=== PATIENT | male | born 1950 | race Caucasian/White ===

== ENCOUNTER 2018-08-26 11:29 | Emergency (ER) | payer OTHER ==
[~2018-08-26] VITALS: Ht 180.3 cm; Wt 79.4 kg
[~2018-08-26 11:29] MED LIST: ALBU90OI INH; COUMADIN PO; Clonazepam0.5 MG PO; DOCU100 PO; DULO60; DULOXETINE HCL30 MG PO; HYDACE5325 PO; LISI20 PO; LISI5 PO; LORA2 PO; Lexapro PO; Metoprolol Tar100 MG PO; Monodox100 MG PO; OMEPRAZOLE PO; RXLORA1 PO; SPACE CHAMBER1 EACH MC; ZESTORETIC 20-121 EA PO; Zofran Odt8 MG SL
[2018-08-26 12:50] LABS: BASOPHILS ABSOLUTE AUTO 0.09 K/mm3 (0.00-0.23); BASOPHILS PERCENT AUTO 1 % (0-2); EOSINOPHILS ABSOLUTE AUTO 0.08 K/mm3 (0.00-0.68); EOSINOPHILS PERCENT AUTO 1 % (0-6); Hematocrit 39.3 % (37.0-53.0); Hemoglobin 13.1 g/dL (13.5-17.5); IMMATURE GRAN ABSOLUTE AUTO 0.02 K/mm3 (0.00-0.10); IMMATURE GRAN PERCENT AUTO 0 % (0-1); LYMPHOCYTES ABSOLUTE AUTO 0.68 K/mm3 (0.84-5.20); LYMPHOCYTES PERCENT AUTO 7 % (21-46); MONOCYTES ABSOLUTE AUTO 1.35 K/mm3 (0.16-1.47); MONOCYTES PERCENT AUTO 14 % (4-13); Mean Corpuscular HGB 32.3 pg (26.0-34.0); Mean Corpuscular HGB Conc 33.3 g/dL (31.5-36.5); Mean Corpuscular Volume 97 fL (80-100); Mean Platelet Volume 9.4 fL (9.1-12.4); NEUTROPHILS ABSOLUTE AUTO 7.44 K/mm3 (1.96-9.15); NEUTROPHILS PERCENT AUTO 77 % (41-73); Platelet Count 264 K/mm3 (150-400); RDW Coefficient Variation 12.2 % (11.7-14.2); RDW Standard Deviation 43.8 fL (35.1-46.3); Red Blood Cell Count 4.06 M/mm3 (4.30-5.90); White Blood Cell Count 9.66 K/mm3 (4.00-11.30)
[2018-08-26 13:13] LABS: Bilirubin, Total 0.5 mg/dL (0.1-1.0); Bun/Creatinine Ratio 14.7 (12.0-20.0); Calcium, Blood 10.6 mg/dL (8.5-10.1); Creatinine, Blood 1.29 mg/dL (0.60-1.20); Globulin, Blood 3.9 g/dL (2.2-4.0); Total Protein, Blood 7.9 g/dL (6.4-8.2)
== END 2018-08-26 15:55 | disposition left against medical advice (07) ==
LOC: ER 11:29
PROVIDERS: Emergency Medicine
DX: Z53.21 Procedure and treatment not carried out due to patient leaving prior to being seen by health care provider (principal)
CPT/HCPCS: 36415; 80053; 85025; 93005; 93010

== ENCOUNTER → 2022-08-03 | Outpatient (CLI) | payer OTHER ==
[2022-08-09 17:11] LABS: FREE TESTOSTERONE(DIRECT) 15.5 pg/mL (6.6-18.1); TESTOSTERONE, SERUM 899 ng/dL (264-916)
== END ==
LOC: LAB 08:50 → LAB SHORT 08:50
PROVIDERS: Nurse Practitioner Family
DX: E29.1 Testicular hypofunction (principal)
CPT/HCPCS: 84402; 84403

== ENCOUNTER → 2024-01-30 | Outpatient (CLI) | payer OTHER ==
[2024-01-30 08:59] LABS: BASOPHILS ABSOLUTE AUTO 0.09 K/mm3 (0.00-0.23); BASOPHILS PERCENT AUTO 1 % (0-2); EOSINOPHILS ABSOLUTE AUTO 0.03 K/mm3 (0.00-0.68); EOSINOPHILS PERCENT AUTO 0 % (0-6); Hematocrit 48.4 % (37.0-53.0); Hemoglobin 16.3 g/dL (13.5-17.5); IMMATURE GRAN ABSOLUTE AUTO 0.03 K/mm3 (0.00-0.10); IMMATURE GRAN PERCENT AUTO 0 % (0-1); LYMPHOCYTES ABSOLUTE AUTO 1.08 K/mm3 (0.84-5.20); LYMPHOCYTES PERCENT AUTO 10 % (21-46); MONOCYTES ABSOLUTE AUTO 1.26 K/mm3 (0.16-1.47); MONOCYTES PERCENT AUTO 11 % (4-13); Mean Corpuscular HGB 31.7 pg (26.0-34.0); Mean Corpuscular HGB Conc 33.7 g/dL (31.5-36.5); Mean Corpuscular Volume 94 fL (80-100); Mean Platelet Volume 9.5 fL (9.1-12.4); NEUTROPHILS ABSOLUTE AUTO 8.84 K/mm3 (1.96-9.15); NEUTROPHILS PERCENT AUTO 78 % (41-73); Platelet Count 300 K/mm3 (150-400); RDW Coefficient Variation 12.9 % (11.7-14.2); RDW Standard Deviation 44.2 fL (35.1-46.3); Red Blood Cell Count 5.14 M/mm3 (4.30-5.90); White Blood Cell Count 11.33 K/mm3 (4.00-11.30)
[2024-01-30 09:11] LABS: Albumin/Globulin Ratio 1.1 (0.8-1.8); Bilirubin, Total 0.9 mg/dL (0.1-1.0); Bun/Creatinine Ratio 10.8 (12.0-20.0); Calcium, Blood 12.5 mg/dL (8.5-10.1); Creatinine, Blood 4.61 mg/dL (0.60-1.20); Globulin, Blood 4.5 g/dL (2.2-4.0); Potassium, Blood 3.5 mmol/L (3.5-5.5); Total Protein, Blood 9.5 g/dL (6.4-8.2)
== END ==
LOC: LAB 08:55 → LAB SHORT 08:55
PROVIDERS: Physician Assistant
DX: R11.2 Nausea with vomiting, unspecified (principal)
CPT/HCPCS: 80053; 83690; 85025

== ENCOUNTER 2024-06-30 07:40 | Observation (INO) | payer OTHER ==
[2024-06-30] VITALS (14 sets, daily range): BP systolic 91–138; BP diastolic 57–92
[~2024-06-30] VITALS: Ht 177.8 cm; Wt 70.9 kg
[~2024-06-30 07:40] MED LIST changes: +AMLO5 PO; +ASPIR 8181 M1 PO; +FERSU300 PO; +GABA300 PO; +Hytrin2 MG PO; +Percocet 5-3251 EACH PO; +SILD50TA PO
[2024-06-30] MEDS ORDERED: Lactated Ringer's 1,000 ML IV SCH ×2 (07:55→12:35)
[2024-06-30] MEDS ORDERED: CeFAZolin Sodium 2,000 MG in NS 100 ML IV SCH (07:55)
--- NOTE | 2024-06-30 08:59 | NUR ---
Ambulatory in Day Surgery WITH S/O RECENTLY. History, Chart, Medications and Allergies reviewed before start of procedure.Lungs clear T/O to Auscultation. Patient confirms NPO status and agrees with scheduled surgery. Pre-Op teaching done. Pt verbalizes understanding.
[2024-06-30] MEDS ORDERED: Bupivacaine 0.5% HCl 5 MG/ML 30MLVIAL ONE (09:11)
[2024-06-30] MEDS ORDERED: propofoL 20 ML IV ONE (09:30)
[2024-06-30] MEDS ORDERED: FentaNYL Citrate 50 MCG/ML 2 ML Injection ONE (09:31)
[2024-06-30] MEDS ORDERED: Phenylephrine HCl 100 MCG/ML-NS 10MLSYR (1MG/10ML) ONE (09:36)
[2024-06-30] MEDS ORDERED: Phenylephrine HCl 10mg/ml 1 ml Vial ONE (10:21)
[2024-06-30] MEDS ORDERED: Ketorolac Tromethamine 30mg Vial ONE (10:22)
[2024-06-30] MEDS ORDERED: Glycopyrrolate 0.2 MG/ML 5ML VIAL ONE (10:23)
[2024-06-30] MEDS ORDERED: Rocuronium Bromide 10 MG/ML 5ML Injection IV ONE (10:23)
[2024-06-30] MEDS ORDERED: SuccINYLCHOLINE Chloride 100 MG/5 ML 5MLSYR ONE (10:23)
[2024-06-30] MEDS ORDERED: Ondansetron HCl 2 MG / ML 2ML Vial ONE (10:23)
[2024-06-30] MEDS ORDERED: Dexamethasone Sod Phos 10 MG/ML 1ML VIAL ONE (10:23)
[2024-06-30] MEDS ORDERED: Sugammadex Sodium 200 MG/2ML SDV (100 MG/ML) ONE (11:31)
[2024-06-30] MEDS ORDERED: HYDROmorphone HCl/Pf 1MG SYR IV PRN (12:25)
[2024-06-30] MEDS ORDERED: Ondansetron HCl 2 MG / ML 2ML Vial IV PRN ×2 (12:25→12:35)
[2024-06-30] MEDS ORDERED: FentaNYL Citrate 50 MCG/ML 2 ML Injection IV PRN ×3 (12:25→12:35)
[2024-06-30] MEDS ORDERED: OxyCODONE 5 mg/Acetamin 325 mg TABLET PO PRN (12:30)
[2024-06-30] MEDS ORDERED: Morphine Sulfate 4 MG/1 ML Injection IV PRN (12:30)
[2024-06-30] MEDS ORDERED: Metoclopramide HCl 5MG / ML 2ML Vial IV PRN (12:30)
[2024-06-30] MEDS ORDERED: Ondansetron 4 MG TAB PO PRN (12:35)
[2024-06-30] MEDS ORDERED: Magnesium Hydroxide Conc 10 ML UDC PO PRN (12:35)
--- NOTE | 2024-06-30 12:45 | NUR ---
ARRIVAL/POST OP NOTE PT ARRIVED TO ROOM 208 FROM PACU. PT IS ALERT, RESPONSIVE, FOLLOWING COMMANDS. SPOUSE AT BEDSIDE. VSS. CONTRERAS MIDLINE DRESSING C/D/I. PAS ON. PT DENIES PAIN/NAUSEA. TOLERATING ICE WATER AND CRACKERS. CALL LIGHT IN REACH.
--- NOTE | 2024-06-30 17:48 | NUR ---
SHIFT SUMMARY PT IS A SBA TO AMBULATE. VOIDED, TOLERATING SNACKS AND FLUIDS. PAIN TOLERABLE. DRESSINGS C/D/I, CONTRERAS HOLDING SUCTION. VSS. PT IS ON ROOM AIR W/ O2 SATS >92%. PAS ON. CALL LIGHT IN REACH.
[2024-06-30] MEDS ORDERED: Docusate Sodium 100 MG Cap PO SCH (21:00)
[2024-06-30] MEDS ORDERED: Gabapentin 300 MG Cap PO SCH (21:00)
[2024-06-30] MEDS ORDERED: Doxazosin Mesylate 2 MG Tab PO SCH (21:00)
[2024-07-01 04:13] VITALS: BP 114/82
[2024-07-01 04:30] LABS: BASOPHILS ABSOLUTE AUTO 0.04 K/mm3 (0.00-0.23); BASOPHILS PERCENT AUTO 0 % (0-2); EOSINOPHILS ABSOLUTE AUTO 0.01 K/mm3 (0.00-0.68); EOSINOPHILS PERCENT AUTO 0 % (0-6); Hematocrit 32.1 % (37.0-53.0); Hemoglobin 10.5 g/dL (13.5-17.5); IMMATURE GRAN ABSOLUTE AUTO 0.04 K/mm3 (0.00-0.10); IMMATURE GRAN PERCENT AUTO 0 % (0-1); LYMPHOCYTES ABSOLUTE AUTO 0.73 K/mm3 (0.84-5.20); LYMPHOCYTES PERCENT AUTO 6 % (21-46); MONOCYTES ABSOLUTE AUTO 1.54 K/mm3 (0.16-1.47); MONOCYTES PERCENT AUTO 14 % (4-13); Mean Corpuscular HGB 31.8 pg (26.0-34.0); Mean Corpuscular HGB Conc 32.7 g/dL (31.5-36.5); Mean Corpuscular Volume 97 fL (80-100); Mean Platelet Volume 9.5 fL (9.1-12.4); NEUTROPHILS ABSOLUTE AUTO 8.99 K/mm3 (1.96-9.15); NEUTROPHILS PERCENT AUTO 79 % (41-73); Platelet Count 228 K/mm3 (150-400); RDW Coefficient Variation 13.1 % (11.7-14.2); RDW Standard Deviation 46.9 fL (35.1-46.3); White Blood Cell Count 11.35 K/mm3 (4.00-11.30)
[2024-07-01 05:07] LABS: Calcium, Blood 8.7 mg/dL (8.5-10.1); Creatinine, Blood 1.23 mg/dL (0.60-1.20); Potassium, Blood 4.7 mmol/L (3.5-5.5)
--- NOTE | 2024-07-01 05:26 | NUR ---
SHIFT SUMMARY NOC PT A/O X 4. PLEASANT AND COOPERATIVE WITH CARE. POST OP VSS. PT POST OP DAY 1 TODAY AFTER HERNIA REPAIR WITH MESH WITH CONTRERAS DRESSING C/D/I AND ABD BINDER IN PLACE. PAIN BEING MANAGED PER EMAR. PT PASSING GAS, BUT NO BM YET. PT URINATING W/O ISSUE. PT EXPECTED TO DISCHARGE TODAY. PT CURRENTLY RESTING WITH BED IN LOWEST POSITION, AND CALL LIGHT WITHIN REACH.
[2024-07-01 07:09] VITALS: BP 102/55
[2024-07-01] MEDS ORDERED: AmLODIPine Besylate 5 MG Tab PO SCH (09:00)
[2024-07-01] MEDS ORDERED: DULoxetine HCL 30 MG Cap DR PO SCH (09:00)
[2024-07-01] MEDS ORDERED: Lisinopril 20 MG Tab PO SCH (09:00)
[2024-07-01] MEDS ORDERED: METO100 PO (10:43)
[2024-07-01] MEDS ORDERED: ADALAT CC30 M1 PO (10:43)
[2024-07-01] MEDS ORDERED: NEURONTIN300 MG PO (10:44)
--- NOTE | 2024-07-01 11:39 | NUR ---
Pt. is awake and sitting up dressed awaiting discharge orders when he welcomed my visit. Spouse is present. 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 Facilitated an update and listen with empathy and a calming presence. Pt. displayed evidence of being fully engaged and aware of his conditional and displays evidence of being motivated to put his procedures behind him.
[2024-07-01] MEDS ORDERED: Percocet 5-3251 EACH PO (11:44)
--- NOTE | 2024-07-01 12:04 | NUR ---
DISCHARGE NOTE PT IS A/OX4, IND IN ROOM. TOLERATING REG DIET, FLUIDS, VOIDING. DENIES N/V. PAIN TOLERABLE W/ PAIN MEDS PER EMAR. WRITTEN PRESCIPTION FOR PAIN MEDS GIVEN TO PT BY TRISTIN RIVAS, COPY IN CHART. VSS. CONTRERAS DRESSING IN PLACE C/D/I. CHARGE NURSE TRISTIN REVIEWED DISCHARGE W/ PT, COPY GIVEN. PT DC'D IN STABLE CONDITION W/ BELONGINGS TO PRIVATE R[facility] HOME.
== END 2024-07-01 12:05 | disposition home or self-care (01) ==
LOC: MEDS 07:40 → PRE IP 07:40 → MEDS 07:40 → PRE IP 09:00 → SURS 12:44 → MEDS 12:44 → SURS 12:44 → MEDS 07-01 12:05
PROVIDERS: ADMIT Surgery
PROC: 0WUF0JZ Supplement Abdominal Wall with Synthetic Substitute, Open Approach (ICD-10-PCS; principal; 2024-06-30 09:00)
DX: K43.2 Incisional hernia without obstruction or gangrene (principal); J44.9 Chronic obstructive pulmonary disease, unspecified; F32.A Depression, unspecified; E78.00 Pure hypercholesterolemia, unspecified; I10 Essential (primary) hypertension; F12.90 Cannabis use, unspecified, uncomplicated; Z87.19 Personal history of other diseases of the digestive system; Z85.89 Personal history of malignant neoplasm of other organs and systems; Z98.890 Other specified postprocedural states; Z90.89 Acquired absence of other organs; Z79.899 Other long term (current) drug therapy; Z79.811 Long term (current) use of aromatase inhibitors; Z88.5 Allergy status to narcotic agent
CPT/HCPCS: 36415; 80048; 85025; A9270; C1781; J0330; J0690; J1100; J1885; J2371; J2405; J2704; J3010; J7120

== ENCOUNTER 2024-07-14 07:23 | Emergency (ER) | payer OTHER ==
[~2024-07-14] VITALS: Ht 180.3 cm; Wt 71.7 kg
[~2024-07-14 07:23] MED LIST changes: +ADALAT CC30 M1 PO; +METO100 PO; +NEURONTIN300 MG PO
[2024-07-14 09:09] LABS: BASOPHILS ABSOLUTE AUTO 0.06 K/mm3 (0.00-0.23); BASOPHILS PERCENT AUTO 1 % (0-2); EOSINOPHILS ABSOLUTE AUTO 0.06 K/mm3 (0.00-0.68); EOSINOPHILS PERCENT AUTO 1 % (0-6); Hematocrit 27.3 % (37.0-53.0); Hemoglobin 8.8 g/dL (13.5-17.5); IMMATURE GRAN ABSOLUTE AUTO 0.03 K/mm3 (0.00-0.10); IMMATURE GRAN PERCENT AUTO 0 % (0-1); LYMPHOCYTES ABSOLUTE AUTO 0.54 K/mm3 (0.84-5.20); LYMPHOCYTES PERCENT AUTO 5 % (21-46); MONOCYTES ABSOLUTE AUTO 1.68 K/mm3 (0.16-1.47); MONOCYTES PERCENT AUTO 16 % (4-13); Mean Corpuscular HGB 31.9 pg (26.0-34.0); Mean Corpuscular HGB Conc 32.2 g/dL (31.5-36.5); Mean Corpuscular Volume 99 fL (80-100); Mean Platelet Volume 9.1 fL (9.1-12.4); NEUTROPHILS ABSOLUTE AUTO 8.07 K/mm3 (1.96-9.15); NEUTROPHILS PERCENT AUTO 77 % (41-73); Platelet Count 457 K/mm3 (150-400); RDW Coefficient Variation 13.2 % (11.7-14.2); Red Blood Cell Count 2.76 M/mm3 (4.30-5.90); White Blood Cell Count 10.44 K/mm3 (4.00-11.30)
[2024-07-14 09:24] LABS: Albumin, Blood 3.2 g/dL (3.4-5.0); Albumin/Globulin Ratio 0.9 (0.8-1.8); Bilirubin, Total 0.6 mg/dL (0.1-1.0); Bun/Creatinine Ratio 29.4 (12.0-20.0); Creatinine, Blood 1.36 mg/dL (0.60-1.20); Globulin, Blood 3.6 g/dL (2.2-4.0); Potassium, Blood 3.6 mmol/L (3.5-5.5); Total Protein, Blood 6.8 g/dL (6.4-8.2)
[2024-07-14 10:00] VITALS: BP 118/70
== END 2024-07-14 10:41 | disposition home or self-care (01) ==
LOC: ER 07:23
PROVIDERS: Emergency Medicine
DX: L76.32 Postprocedural hematoma of skin and subcutaneous tissue following other procedure (principal); D64.9 Anemia, unspecified; I10 Essential (primary) hypertension; Z88.5 Allergy status to narcotic agent; Z79.899 Other long term (current) drug therapy; Z79.82 Long term (current) use of aspirin; Z87.891 Personal history of nicotine dependence
CPT/HCPCS: 74177; 80053; 85025; 99284-25; Q9967

== ENCOUNTER 2024-07-25 09:00 | Day surgery (SDC) | payer OTHER ==
[~2024-07-25] VITALS: Ht 180.3 cm; Wt 69.0 kg
[~2024-07-25 09:00] MED LIST changes: +Lactated Ringer's 1,000 ML IV ONE; +Lidocaine HCl/Pf 1% 5 ML VIAL ONE
[2024-07-25] MEDS ORDERED: CeFAZolin Sodium 2,000 MG VIAL ONE (09:34)
--- NOTE | 2024-07-25 09:52 | NUR ---
07/25/24 0952 Suze Springer PATIENT HAS RASH ALL OVER HIS BACK, SOME ON HIS LEGS AND ARMS. HE STATES HE STARTED HAVING AN ITCHY BACK THE NIGHT BEFORE LAST AND IT ITCHED LAST NIGHT TOO, BUT THAT HE DID NOT NOTICE THE SPOTS ON HIS ARMS AND LEGS UNTIL THIS MORNING. THE RASH IS RED SPOTS THAT ARE NOT RAISED. NO RECENT FEVER. AT 0950 DR CHU WAS MADE AWARE OF THIS RASH, PER DR CHU HE HAD A RASH WHEN HE CAME INTO THE OFFICE THE OTHER DAY AND PROCEED WITH SURGERY SCHEDULED TODAY.
[2024-07-25] MEDS ORDERED: Amoxicillin500 MG PO (09:59)
[2024-07-25] MEDS ORDERED: Lactated Ringer's 1,000 ML IV ONE ×2 (10:05→11:46)
[2024-07-25] MEDS ORDERED: FentaNYL Citrate 50 MCG/ML 2 ML Injection ONE ×2 (10:17→11:25)
[2024-07-25] MEDS ORDERED: Midazolam HCl 1MG / ML 2ML Vial ONE (10:17)
[2024-07-25] MEDS ORDERED: propofoL 20 ML IV ONE (10:17)
[2024-07-25] MEDS ORDERED: Dexamethasone Sod Phos 10 MG/ML 1ML VIAL ONE ×2 (10:37→14:12)
[2024-07-25] MEDS ORDERED: Ondansetron HCl 2 MG / ML 2ML Vial ONE ×2 (10:37→14:12)
[2024-07-25] MEDS ORDERED: Phenylephrine HCl 100 MCG/ML-NS 10MLSYR (1MG/10ML) ONE (10:56)
[2024-07-25] MEDS ORDERED: ePHEDrine Sulfate 50 MG/ML 1ML Injection ONE (11:01)
--- NOTE | 2024-07-25 11:04 | NUR ---
07/25/24 1104 Jhoana Escobar PT PRESENTED TODAY WITH RASH ON BODY, STATES HE STARTED AMOXICILLIN FOR A PULLED TOOTH. DR. PINON PROVIDED IV MEDICATION FOR ITCH
[2024-07-25] MEDS ORDERED: Bupivacaine 0.5% HCl 5 MG/ML 30MLVIAL XX ONE (11:06)
[2024-07-25] MEDS ORDERED: Bupivacaine HCl 0.25% 30 ML Injection ONE (11:33)
--- NOTE | 2024-07-25 12:32 | NUR ---
07/25/24 1232 Aneta Benoit PT TO PACU, SLEEPING UPON ARRIVAL. VSS. REPORT RECEIVED. DRESSING CDI. WOUND VAC TO MIDLINE OF ABDOMEN AND THUY DRAIN TO LEFT OF WOUND VAC. SANGUINOUS DRAINAGE IN THUY DRAIN. PATIENT AROUSABLE TO VERBAL STIMULI AND DENIES PAIN OR NAUSEA AT THIS TIME. PT FOLLOWS SIMPLE COMMANDS AND ANSWERS QUESTIONS.
--- NOTE | 2024-07-25 13:06 | NUR ---
07/25/24 1306 Aneta Benoit PT ASSISTED WITH PUTTING PANTS ON AND PLACED IN RECLINER. WARM BLANKETS APPLIED. PT DENIES DIZZINESS WITH TRANSFER. PT TOLERATING ORAL FLUIDS WELL. VSS. PT AWAKE AND ORIENTED.
[2024-07-25 13:45] VITALS: BP 120/63
== END 2024-07-25 14:09 | disposition home or self-care (01) ==
LOC: ORSCSDS 09:00
PROVIDERS: Surgery
PROC: 0WPF0JZ Removal of Synthetic Substitute from Abdominal Wall, Open Approach (ICD-10-PCS; 2024-07-25)
PROC: 0WJF0ZZ Inspection of Abdominal Wall, Open Approach (ICD-10-PCS; principal; 2024-07-25 10:30)
DX: T81.30XA Disruption of wound, unspecified, initial encounter (principal); F32.A Depression, unspecified; J44.9 Chronic obstructive pulmonary disease, unspecified; E78.00 Pure hypercholesterolemia, unspecified; E78.5 Hyperlipidemia, unspecified; I10 Essential (primary) hypertension; Z79.82 Long term (current) use of aspirin; Z79.899 Other long term (current) drug therapy
CPT/HCPCS: J0690; J1100; J2003; J2250; J2371; J2405; J2704; J3010; J7120

== ENCOUNTER 2024-07-30 02:12 | Day surgery (SDC) | payer OTHER ==
[~2024-07-30 02:12] MED LIST changes: +Amoxicillin500 MG PO; -Lactated Ringer's 1,000 ML IV ONE; -Lidocaine HCl/Pf 1% 5 ML VIAL ONE
== END 2024-07-30 23:00 | disposition home or self-care (01) ==
LOC: WOUND 02:12
DX: S31.109A Unspecified open wound of abdominal wall, unspecified quadrant without penetration into peritoneal cavity, initial encounter (principal); T81.30XA Disruption of wound, unspecified, initial encounter; I10 Essential (primary) hypertension; G62.9 Polyneuropathy, unspecified; Z88.0 Allergy status to penicillin; X58.XXXA Exposure to other specified factors, initial encounter
CPT/HCPCS: G0463

== ENCOUNTER 2024-08-01 03:30 | Day surgery (SDC) | payer OTHER | END 2024-08-01 23:00 | disposition home or self-care (01) | LOC: WOUND 03:30 | DX: T81.30XD Disruption of wound, unspecified, subsequent encounter (principal); S31.109D Unspecified open wound of abdominal wall, unspecified quadrant without penetration into peritoneal cavity, subsequent encounter; X58.XXXD Exposure to other specified factors, subsequent encounter ==

== ENCOUNTER 2024-08-04 04:08 | Day surgery (SDC) | payer OTHER ==
[2024-08-04] MEDS ORDERED: Lidocaine HCl 4% Topical Soln 5 MLUDC ONE (11:33)
== END 2024-08-04 23:27 | disposition home or self-care (01) ==
LOC: WOUND 04:08
DX: T81.31XA Disruption of external operation (surgical) wound, not elsewhere classified, initial encounter (principal); S31.109A Unspecified open wound of abdominal wall, unspecified quadrant without penetration into peritoneal cavity, initial encounter; X58.XXXA Exposure to other specified factors, initial encounter
CPT/HCPCS: A9270

== ENCOUNTER 2024-08-06 03:05 | Day surgery (SDC) | payer OTHER ==
[2024-08-06] MEDS ORDERED: Lidocaine HCl 4% Topical Soln 5 MLUDC ONE (09:01)
== END 2024-08-06 23:00 | disposition home or self-care (01) ==
LOC: WOUND 03:05
DX: T81.31XD Disruption of external operation (surgical) wound, not elsewhere classified, subsequent encounter (principal); Y83.8 Other surgical procedures as the cause of abnormal reaction of the patient, or of later complication, without mention of misadventure at the time of the procedure
CPT/HCPCS: A9270

== ENCOUNTER 2024-08-08 04:32 | Day surgery (SDC) | payer OTHER ==
[2024-08-08] MEDS ORDERED: Lidocaine HCl 4% Topical Soln 5 MLUDC ONE (09:03)
== END 2024-08-08 23:00 | disposition home or self-care (01) ==
LOC: WOUND 04:32
DX: T81.30XD Disruption of wound, unspecified, subsequent encounter (principal); S31.109D Unspecified open wound of abdominal wall, unspecified quadrant without penetration into peritoneal cavity, subsequent encounter; X58.XXXD Exposure to other specified factors, subsequent encounter; Y83.8 Other surgical procedures as the cause of abnormal reaction of the patient, or of later complication, without mention of misadventure at the time of the procedure
CPT/HCPCS: A9270

== ENCOUNTER 2024-08-11 01:49 | Day surgery (SDC) | payer OTHER ==
[2024-08-11] MEDS ORDERED: Lidocaine HCl 4% Topical Soln 5 MLUDC ONE (11:28)
== END 2024-08-11 23:32 | disposition home or self-care (01) ==
LOC: WOUND 01:49
DX: S31.109A Unspecified open wound of abdominal wall, unspecified quadrant without penetration into peritoneal cavity, initial encounter (principal); T81.31XA Disruption of external operation (surgical) wound, not elsewhere classified, initial encounter; I10 Essential (primary) hypertension; Y83.8 Other surgical procedures as the cause of abnormal reaction of the patient, or of later complication, without mention of misadventure at the time of the procedure
CPT/HCPCS: A9270

== ENCOUNTER 2024-08-13 05:36 | Day surgery (SDC) | payer OTHER ==
[2024-08-13] MEDS ORDERED: Lidocaine HCl 4% Topical Soln 5 MLUDC ONE (08:16)
== END 2024-08-13 23:00 ==
LOC: WOUND 05:36
DX: T81.31XA Disruption of external operation (surgical) wound, not elsewhere classified, initial encounter (principal); I10 Essential (primary) hypertension
CPT/HCPCS: A9270

== ENCOUNTER 2024-08-29 01:39 | Day surgery (SDC) | payer OTHER ==
[2024-08-29] MEDS ORDERED: Lidocaine HCl 4% Topical Soln 5 MLUDC ONE (11:14)
== END 2024-08-29 23:00 | disposition home or self-care (01) ==
LOC: WOUND 01:39
DX: S31.109A Unspecified open wound of abdominal wall, unspecified quadrant without penetration into peritoneal cavity, initial encounter (principal); T81.30XA Disruption of wound, unspecified, initial encounter; X58.XXXA Exposure to other specified factors, initial encounter
CPT/HCPCS: A9270

== ENCOUNTER 2024-09-01 03:12 | Day surgery (SDC) | payer OTHER ==
[2024-09-01] MEDS ORDERED: Lidocaine HCl 4% Topical Soln 5 MLUDC ONE (11:25)
== END 2024-09-01 23:50 | disposition home or self-care (01) ==
LOC: WOUND 03:12
DX: T81.30XA Disruption of wound, unspecified, initial encounter (principal); S31.109A Unspecified open wound of abdominal wall, unspecified quadrant without penetration into peritoneal cavity, initial encounter
CPT/HCPCS: A9270

== ENCOUNTER 2024-09-02 10:47 | Day surgery (SDC) | payer OTHER ==
[2024-09-02] MEDS ORDERED: Lidocaine HCl 4% Topical Soln 5 MLUDC ONE (10:52)
== END 2024-09-02 22:00 | disposition home or self-care (01) ==
LOC: WOUND 10:47
DX: T81.30XD Disruption of wound, unspecified, subsequent encounter (principal); S31.109D Unspecified open wound of abdominal wall, unspecified quadrant without penetration into peritoneal cavity, subsequent encounter; Y83.8 Other surgical procedures as the cause of abnormal reaction of the patient, or of later complication, without mention of misadventure at the time of the procedure; X58.XXXD Exposure to other specified factors, subsequent encounter
CPT/HCPCS: A9270

== ENCOUNTER 2024-09-24 02:50 | Day surgery (SDC) | payer OTHER | END 2024-09-24 23:00 | disposition home or self-care (01) | LOC: WOUND 02:50 | DX: T81.31XD Disruption of external operation (surgical) wound, not elsewhere classified, subsequent encounter (principal); I10 Essential (primary) hypertension; Y83.8 Other surgical procedures as the cause of abnormal reaction of the patient, or of later complication, without mention of misadventure at the time of the procedure | CPT/HCPCS: A6213; G0463 ==

== ENCOUNTER 2024-10-01 01:46 | Day surgery (SDC) | payer OTHER | END 2024-10-01 23:00 | disposition home or self-care (01) | LOC: WOUND 01:46 | DX: S31.109A Unspecified open wound of abdominal wall, unspecified quadrant without penetration into peritoneal cavity, initial encounter (principal); T81.31XA Disruption of external operation (surgical) wound, not elsewhere classified, initial encounter; Y83.8 Other surgical procedures as the cause of abnormal reaction of the patient, or of later complication, without mention of misadventure at the time of the procedure | CPT/HCPCS: A6213; G0463 ==

== ENCOUNTER 2024-10-08 03:17 | Day surgery (SDC) | payer OTHER | END 2024-10-08 23:00 | disposition home or self-care (01) | LOC: WOUND 03:17 | DX: S31.109A Unspecified open wound of abdominal wall, unspecified quadrant without penetration into peritoneal cavity, initial encounter (principal); T81.31XA Disruption of external operation (surgical) wound, not elsewhere classified, initial encounter; Y83.8 Other surgical procedures as the cause of abnormal reaction of the patient, or of later complication, without mention of misadventure at the time of the procedure | CPT/HCPCS: G0463 ==

== ENCOUNTER 2024-10-22 03:27 | Day surgery (SDC) | payer OTHER | END 2024-10-22 23:00 | disposition home or self-care (01) | LOC: WOUND 03:27 | DX: T81.31XD Disruption of external operation (surgical) wound, not elsewhere classified, subsequent encounter (principal); Y83.8 Other surgical procedures as the cause of abnormal reaction of the patient, or of later complication, without mention of misadventure at the time of the procedure | CPT/HCPCS: G0463 ==